=== PATIENT | female | born 1945 | race Caucasian/White ===

== ENCOUNTER → 2017-05-11 | Outpatient (CLI) | payer OTHER ==
[~2017-05-11] MED LIST: CHOL100010 PO; FSM70 PO; MULT-506 PO
[2017-05-11 18:42] LABS: URINE APPEARANCE TURBID (CLEAR); URINE BILIRUBIN NEG (NEG); URINE COLOR YELLOW; URINE NITRITE NEG (NEG); URINE SPECIFIC GRAVITY 1.024 (1.000-1.030); UROBILINOGEN NEG (NEG)
[2017-05-11 18:51] LABS: MANUAL MICROSCOPIC REQUIRED? NO; REVIEW REQ? YES
== END | disposition home or self-care (01) ==
LOC: C.LABSPEC 17:57
PROVIDERS: ATTEND Family Medicine
DX: R39.9 Unspecified symptoms and signs involving the genitourinary system (principal)

== ENCOUNTER → 2017-05-18 | Outpatient (CLI) | payer OTHER ==
--- NOTE | 2017-05-18 12:02 | DIAGNOSTIC IMAGING REPORT ---
(RENAL)RETROPERITON COMP HISTORY: 71 years-old Female R31.9 Hematuria with recurrent hematuria. R/o structural abnor COMPARISON: None available TECHNIQUE: Multiple real-time static images of the kidneys and urinary bladder were obtained assessing grayscale appearance and color flow FINDINGS: Urinary bladder is unremarkable with bilateral ureteral jets documented. Right kidney measures 10.2 x 4.0 x 5.2 cm and is within normal limits without focal mass, hydronephrosis or renal calculi. There is mild dilation of the left renal pelvis, Central and peripheral calyces without obstructing stone or mass identified. The left kidney measures 10.8 x 5.3 x 4.5 cm. IMPRESSION: 1. Mild dilation of the left renal pelvis, central and peripheral calyces suggests hydronephrosis without obstructing stone or mass identified. This finding could be further evaluated with dedicated CT if clinically indicated. 2. Normal sonographic appearance of the right kidney and urinary bladder. The above report was generated using voice recognition software. It may contain grammatical, syntax or spelling errors. Electronically signed by: Branden Shelton M.D. 05/18/2017 12:00 PM Dictated Date/Time: 05/18/2017 11:57 AM
== END | disposition home or self-care (01) ==
LOC: C.ULTRBC 10:32
PROVIDERS: ATTEND Family Medicine
DX: R31.9 Hematuria, unspecified (principal)

== ENCOUNTER → 2017-06-06 | Outpatient (CLI) | payer OTHER | END | disposition home or self-care (01) | LOC: C.LABSPEC 16:52 | PROVIDERS: ATTEND Nurse Practitioner Family | DX: R31.9 Hematuria, unspecified (principal) ==

== ENCOUNTER → 2017-06-13 | Outpatient (CLI) | payer OTHER ==
[~2017-06-13] MED LIST changes: +OPTIRAY 320 IV PRN
--- NOTE | 2017-06-13 13:11 | DIAGNOSTIC IMAGING REPORT ---
ABD/PELVIS COMBO CLINICAL HISTORY: 71 years-old Female presenting with HEMATURIA, history of breast cancer. TECHNIQUE: Multidetector CT of the abdomen and pelvis was performed before and after the administration of intravenous contrast. IV contrast: 93 mL of Optiray 320. A dose lowering technique was used consistent with the principles of ALARA (as low as reasonably achievable). COMPARISON: 11/05/2008. CT DOSE (mGy.cm): The estimated cumulative dose is 2026.88 mGycm. 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 Lung bases: Minimal dependent changes likely atelectasis. Normal heart size. No pericardial or pleural effusion. Postsurgical changes of left mastectomy. Liver: Normal morphology. No liver lesion. Patent hepatic vasculature. Biliary: No intrahepatic or extrahepatic biliary ductal dilatation. Normal gallbladder. Pancreas: Mild parenchymal atrophy. Spleen: Normal. Adrenal glands: Normal. Kidneys and ureters: No nephrolithiasis. Normal enhancement. Normal excretion. No hydronephrosis. Bladder: Normal. No evidence of abnormal wall thickening. Pelvic organs: Uterus surgically absent. Left ovarian 2.5 cm cyst, which appears simple. This is unexpected for postmenopausal female but almost certainly benign. Right ovary normal. Bowel: Moderate stool burden throughout normal caliber colon. Normal appendix. No bowel obstruction. Peritoneal cavity: No free fluid or intraperitoneal gas. Vasculature: Atherosclerosis of the normal caliber abdominal aorta. IVC patent. The left gonadal vein is mildly dilated with few prominent pelvic varices, suggesting pelvic congestion physiology. Lymph nodes: No enlarged lymph nodes in the abdomen or pelvis. Abdominal wall: Normal. Musculoskeletal: Normal. IMPRESSION: 1. No nephrolithiasis. No renal, ureteral, or bladder mass. No CT etiology for the patient's hematuria. 2. No acute intra-abdominal pathology. 3. Post surgical changes of left mastectomy. No evidence of metastatic disease in abdomen or pelvis. Electronically signed by: Abdirahman Cleaning M.D. 06/13/2017 1:10 PM Dictated Date/Time: 06/13/2017 1:02 PM
== END | disposition home or self-care (01) ==
LOC: C.CTS 10:38
PROVIDERS: ATTEND Nurse Practitioner Family
DX: R31.9 Hematuria, unspecified (principal); Z90.12 Acquired absence of left breast and nipple

== ENCOUNTER → 2017-07-11 | Outpatient (CLI) | payer OTHER ==
[~2017-07-11] MED LIST changes: -OPTIRAY 320 IV PRN
[2017-07-13 15:16] LABS: CHLAMYDIA TRACH RNA*** NOT DETECTED (NOT DETECTED); GC (NEIS GONORRHOEAE)RNA** NOT DETECTED (NOT DETECTED)
== END | disposition home or self-care (01) ==
LOC: C.LABSPEC 17:15
PROVIDERS: ATTEND Urology
DX: R31.0 Gross hematuria (principal)

== ENCOUNTER → 2017-09-28 | Outpatient (CLI) | payer OTHER | END | disposition home or self-care (01) | LOC: C.MAMM 09:03 | PROVIDERS: ATTEND Nurse Practitioner Family | DX: M85.89 Other specified disorders of bone density and structure, multiple sites (principal); E55.9 Vitamin D deficiency, unspecified ==

== ENCOUNTER → 2018-01-09 | Outpatient (CLI) | payer OTHER ==
--- NOTE | 2018-01-09 10:31 | DIAGNOSTIC IMAGING REPORT ---
CHEST 2 VIEWS ROUTINE HISTORY: R05 [id number] COMPARISON: Chest 06/03/2011. FINDINGS: The heart is normal in size. Mildly tortuous thoracic aorta. No pleural effusions. No pneumothorax. The lungs are clear. No focal lung consolidations to suggest pneumonia. IMPRESSION: No acute process. Electronically signed by: Nasir Hanna M.D. 01/09/2018 10:30 AM Dictated Date/Time: 01/09/2018 10:28 AM
== END | disposition home or self-care (01) ==
LOC: C.RADBC 09:49
PROVIDERS: ATTEND Nurse Practitioner Family
DX: R05 Cough (principal)